=== PATIENT | male | born 1965 | race American Indian/Alaskan Native ===

== ENCOUNTER 2017-01-08 13:27 | Emergency (ER) | payer OTHER ==
[2017-01-08] MEDS ORDERED: ZOFRAN IV ONE (13:40)
--- NOTE | 2017-01-08 13:47 | Emergency Department Report ---
HPI - General Time Seen by Provider: 01/08/17 13:33 - HPI HPI: Room 3 The pt is a 51 y/o M sent with a cc of n/v. The pt does not provide any info when questioned about his presentation. EMS reports they were called to the pt' s dialysis center for N?V> Paperwork accompanying the pt states the pt was sent 2/2 clogged dialysis catheter. No dialysis was performed today ED Past Medical Hx - Past Medical History Hx CVA: Yes Hx Renal Disease: Yes (ESRD) Additional medical history: Endocarditis - Surgical History Additional Surgical History: R chest dialysis catheter - Family History Family history: no significant - Social History Smoking Status: Unknown if ever smoked ED Review of Systems ROS: Stated complaint: VOMITTING Other details as noted in HPI Comment: Unobtainable due to pts medical conditions Physical Exam - Physical Exam Physical Exam: GENERAL: The patient is well-developed male lying on stretcher with green emesis around mouth and on clothes. Pt opens eyes but does not respond to questions verbally HEENT: Normocephalic. Atraumatic. Patient has moist mucous membranes. NECK: Trachea midline CHEST/LUNGS: Clear to auscultation. There is no respiratory distress noted. HEART/CARDIOVASCULAR: Regular. There is tachycardia. There is no gallop rub or murmur. ABDOMEN: Abdomen is soft, nontender. Patient has normal bowel sounds. There is no abdominal distention. SKIN: There is no rash. There is no diaphoresis. NEURO: Pt opens eyes but does not respond to questions verbally MUSCULOSKELETAL: There is no evidence of acute injury. ED Course - Consultations Consultation #1: 01/08/17 15:14 [facility] transfer called- Case d/w Dr Phillip Fitzgerald. Will have NSG call back 01/08/17 16:07 Case discussed with neurosurgeon Dr. Grover. Recommends patient be admitted by [facility] and he will observe. Recommends sending patient to [facility] 01/08/17 16:14 Dr. Fisher notified of conversation with Dr. Grover. Will contact [facility] intensivists and call back with admitting physician 01/08/17 16:[address] Fisher stating patient will be transferred to [facility] and the accepting physician is Dr. Velasquez ED Medical Decision Making - Lab Data Result diagrams: 01/08/17 15:15 01/08/17 15:15 Laboratory Tests 01/08/17 01/08/17 01/08/17 15:15 15:15 15:15 WBC 7.5 RBC 3.03 L Hgb 8.5 L Hct 27.8 L MCV 92 MCH 28 MCHC 31 L RDW 22.2 H Plt Count 119 L Lymph % (Auto) 11.9 L Mccormick % (Auto) 5.4 Eos % (Auto) 0.1 Baso % (Auto) 0.3 Lymph # 0.9 L Mccormick # 0.4 Eos # 0.0 Baso # 0.0 Seg Neutrophils % 82.3 H Seg Neutrophils # 6.2 PT 20.0 H INR 1.62 H APTT 34.6 Sodium 140 Potassium 5.1 H Chloride 95.3 L Carbon Dioxide 17 L Anion Gap 33 BUN 44 H Creatinine 6.0 H Estimated GFR 12 BUN/Creatinine Ratio 7 Glucose 59 L Calcium 8.2 L Total Bilirubin 0.50 AST 32 ALT 14 Alkaline Phosphatase 80 Total Creatine Kinase 69 CK-MB (CK-2) 3.4 CK-MB (CK-2) Rel Index 4.9 H Total Protein 7.2 Albumin 2.8 L Albumin/Globulin Ratio 0.6 Amylase 104 Lipase 88 H - EKG Data -: EKG Interpreted by Ma EKG shows normal: sinus rhythm Rate: normal - EKG Data When compared to previous EKG there are: previous EKG unavailable Interpretation: other (no ischemic changes seen) - Radiology Data Radiology results: report reviewed (CT head), image reviewed (CT head) CT Head (read by radiologist)- acute parenchymal hemmorhage in Left cerebellar hemisphere, with possible small amount of subdural hemorrhage tracking along the left tentorium. Hemorrhage is of uncertain etiology, possibly related to ischemia. Consider further evaluation to exclude underlying hemorrhagic mass. CT abdomen and pelvis (read by radiologist)- probable gallbladder sludge and stones. There may be gallbladder wall thickening versus fluid in the gallbladder fossa. Recommend further evaluation with gallbladder ultrasound. Numerous rounded renal lesions bilaterally ovarian density. Although these may be related to renal cyst, recommend further evaluation to exclude solid renal lesion. Large-volume stool in the rectosigmoid colon suggest constipation/ obstipation. No bowel obstruction or acute bowel inflammation is seen. - Differential Diagnosis ESRD, SBO, gastritis Critical care attestation.: If time is entered above; I have spent that time in minutes in the direct care of this critically ill patient, excluding procedure time. ED Disposition Clinical Impression: Cerebellar hemorrhage, Altered mental status, Nausea & vomiting Disposition: DC/TX-70 ANOTHER TYPE HLTHCARE Is pt being admited?: No Does the pt Need Aspirin: No Condition: Serious Referrals: PRIMARY CARE, [Primary Care Provider] - 3-5 Days Time of Disposition: 16:17 (awaiting acceptance)
--- NOTE | 2017-01-08 15:02 | Cat Scan Report ---
FINAL REPORT PROCEDURE: CT HEAD/BRAIN WO CON TECHNIQUE: Computerized tomography of the head was performed without contrast material. HISTORY: Nausea, vomiting, altered mental status COMPARISON: No prior studies are available for comparison. FINDINGS: There is an acute area of hemorrhage in the left cerebellar hemisphere, which measures approximately 1.9 centimeters AP x 3.0 centimeters transverse x 2.3 centimeters craniocaudal. There is surrounding parenchymal edema. Basal cisterns are preserved. There may be a small amount of hemorrhage tracking along the left tentorium. No significant cerebellar tonsillar herniation is identified at this time. There are underlying involutional changes, with prominence of the ventricles and the sulci. No evidence of hydrocephalus. There are bilateral periventricular white matter low attenuation areas, compatible with chronic ischemic changes. Bilateral basal ganglia subcentimeter lacunar infarcts are present, which appear chronic. No acute fracture is seen. Visualized paranasal sinuses and mastoids are aerated. IMPRESSION: Acute parenchymal hemorrhage in the left cerebellar hemisphere, with possible small amount of subdural hemorrhage tracking along the left tentorium. Hemorrhage is of uncertain etiology, possibly related to ischemia. Consider further evaluation to exclude underlying hemorrhagic mass.
--- NOTE | 2017-01-08 15:10 | Cat Scan Report ---
FINAL REPORT PROCEDURE: CT ABDOMEN PELVIS WO CON TECHNIQUE: Computerized axial tomography of the abdomen and pelvis was performed without intravenous contrast. This study is performed without intravascular contrast material and its sensitivity for abdominal and pelvic pathology, including neoplasms, inflammation, abscess, free fluid, thrombosis, arterial dissection and infarction, is reduced compared with a contrast enhanced study. HISTORY: bilious emesis COMPARISON: No prior studies are available for comparison. FINDINGS: Visualized lower thorax: The heart is mildly prominent. Trace amount of pericardial fluid. There is moderate-sized layering right pleural effusion. Liver: Normal size and attenuation. Spleen: Normal size and attenuation. Gallbladder and biliary system: There is probable gallbladder sludge and gallstones. There may be gallbladder wall thickening versus fluid in the gallbladder fossa. Pancreas: Normal. Adrenals: Mild bilateral adrenal hyperplasia. Kidneys: There are numerous bilateral rounded renal lesions, some of which are hypodense, some isodense, some hyperdense compared to the renal parenchyma. These may be related to cysts of varying density, however consider further evaluation to exclude any solid lesions. GI tract: There is large volume of stool in the rectosigmoid colon, suggesting constipation. No proximal obstruction is seen. The appendix is visualized and does not appear inflamed. No small-bowel obstruction or obvious inflammatory changes are seen. Lymph nodes and mesentery: Normal. Vasculature: Aortic and bilateral common iliac artery calcification. Bladder: Urinary bladder is nondistended. There may be mild circumferential urinary bladder wall thickening however. Reproductive organs: Grossly unremarkable. Peritoneum: No free fluid. Musculoskeletal structures: Degenerative disc changes at L5-S1. Other: None. IMPRESSION: Probable gallbladder sludge and stones. There may be gallbladder wall thickening versus fluid in the gallbladder fossa. Recommend further evaluation with gallbladder ultrasound. Numerous rounded renal lesions bilaterally of varying density. Although these may be related to renal cysts, recommend further evaluation to exclude solid renal lesion. Large volume of stool in the rectosigmoid colon suggests constipation/obstipation. No bowel obstruction or acute bowel inflammation is seen. Prominent heart size. Correlate for signs of congestive heart failure
[2017-01-08] MEDS ORDERED: KEPPRA 1,000 MG/NS 0.75% 100ML 1,000 MG/100 ML BAG IV ONE (15:26)
[2017-01-08 15:46] LABS: INR 1.62 (0.87-1.13)
[2017-01-08 15:47] LABS: Partial Thromboplastin Time 34.6 Sec. (24.2-36.6)
[2017-01-08 15:50] LABS: Basophils % (Auto) 0.3 % (0.0-1.8); Eosinophils % (Auto) 0.1 % (0.0-4.3); Hematocrit 27.8 % (35.5-45.6); Hemoglobin 8.5 gm/dl (11.8-15.2); Mean Corpuscular HGB Conc 31 % (32-34); Mean Corpuscular Hemoglobin 28 pg (28-32); Mean Corpuscular Volume 92 fl (84-94); Platelet Count 119 K/mm3 (140-440); Red Blood Count 3.03 M/mm3 (3.65-5.03); White Blood Count 7.5 K/mm3 (4.5-11.0)
[2017-01-08 15:52] LABS: Red Cell Distribution Width 22.2 % (13.2-15.2)
[2017-01-08 15:58] LABS: Creatine Kinase MB 3.4 ng/mL (0.0-4.0)
[2017-01-08 16:00] LABS: Albumin 2.8 g/dL (3.9-5); Albumin/Globulin Ratio 0.6 %; Bilirubin,Total 0.5 mg/dL (0.1-1.2); Calcium 8.2 mg/dL (8.4-10.2); Chloride 95.3 mmol/L (98-107); Potassium 5.1 mmol/L (3.6-5.0); Total Protein 7.2 g/dL (6.3-8.2)
[2017-01-08] MEDS ORDERED: D50W (25GM) Syringe IV ONE (16:08)
[2017-01-08 18:14] LABS: ABG Base Excess -6.9 mmol/L (-2.0-3.0); ABG HCO3 16.6 mmol/L (20.0-26.0); ABG Oxygen Saturation 97.2 % (95.0-99.0); ABG PCO2 26.2 mm Hg; ABG PH 7.419 pH Units (7.350-7.450); ABG PO2 84.7 mm Hg (80.0-90.0)
[2017-01-08 19:45] VITALS: BP 104/74
--- NOTE | 2017-01-08 20:58 | XRay Report ---
FINAL REPORT EXAM: XR CHEST 1V AP HISTORY: tachypnea COMPARISON: None available. FINDINGS: Frontal view(s) of the chest obtained. Mild cardiac enlargement. Left subclavian line is present. Distal tip projects over the distal SVC. Right IJ line is present. Distal tip projects over the distal SVC and right atrium. Mild hazy opacities at the lung bases concerning for mild atelectasis versus congestion. No pneumothorax. IMPRESSION: Mild congestion versus atelectasis at the lung bases.
== END 2017-01-08 20:51 | disposition other institution (70) ==
LOC: ED 13:27
DX: I61.4 Nontraumatic intracerebral hemorrhage in cerebellum (principal); N18.6 End stage renal disease; Z86.73 Personal history of transient ischemic attack (TIA), and cerebral infarction without residual deficits
CPT/HCPCS: 36415; 70450; 71010; 74176; 80053; 80061; 82150; 82550; 82553; 82803; 82962; 83690; 84484; 85025; 85610; 85730; 93005; 93010; 96374; 96375; 99285; J1953; J2405